=== PATIENT | male | born 1980 | race Two or more races ===

== ENCOUNTER 2018-06-13 14:39 | Inpatient (IN) | payer MEDICAID ==
[~2018-06-13] VITALS: Ht 165.1 cm; Wt 73.5 kg
--- NOTE | 2018-06-13 15:00 | NUR ---
BIB SELF, SLIPPED ON THE STAIRS AND HIT THE GLASS WINDOW, -KO, RFA LACERATION. TO ER BED 12, HOOKED TO MONITOR, GABRIELA VIDES AT BEDSIDE.
[2018-06-13] MEDS ORDERED: LIDOCAINE 2%-EPI 1:100,000 30 ML VIAL ONE ×2 (15:03→15:14)
[2018-06-13] MEDS ORDERED: HYDROMORPHONE INJ 0.5 MG/0.5 ML SYRINGE ONE (15:14)
[2018-06-13] MEDS ORDERED: ONDANSETRON HCL/PF 4 MG/2 ML VIAL ONE (15:14)
[2018-06-13] MEDS ORDERED: CEFTRIAXONE 1GM BAG (ER ONLY) 50 ML IV ONE (15:26)
[2018-06-13] MEDS ORDERED: TDAP [DIPH/PERTUSSIS/TET] 0.5 ML VIAL IM ONE ×2 (15:30→15:38)
[2018-06-13] MEDS ORDERED: CEFTRIAXONE 1 G in IV D5W 50 ML IV ONE (15:30)
[2018-06-13] MEDS ORDERED: ONDANSETRON HCL/PF 4 MG/2 ML VIAL IV ONE (15:30)
[2018-06-13] MEDS ORDERED: LIDOCAINE 2%-EPI 1:100,000 30 ML VIAL TP ONE (15:30)
[2018-06-13] MEDS ORDERED: HYDROMORPHONE INJ 0.5 MG/0.5 ML SYRINGE IV ONE (15:30)
[2018-06-13] MEDS ORDERED: CEFAZOLIN 1 GM in IV D5W 50 ML IV ONE (15:30)
--- NOTE | 2018-06-13 15:47 | NUR ---
PAGED ORTHO POULTRY HUSBANDRY TEACHER DR GANDARA. [phone]
--- NOTE | 2018-06-13 16:18 | NUR ---
DR SELMA IQBAL.
[2018-06-13] MEDS ORDERED: IV NS 0.9% 1,000 ML BAG IV ONE (17:00)
[2018-06-13 17:22] LABS: BASOPHILS # (AUTO) 0.1 /CMM (0.0-0.2); BASOPHILS % (AUTO) 0.5 % (0.0-2.0); EOSINOPHILS % (AUTO) 0.2 % (0.0-6.0); HEMATOCRIT 44 % (39-51); HEMOGLOBIN 14.9 g/dL (13.5-17.5); LYMPHOCYTES # (AUTO) 0.7 /CMM (0.8-4.8); LYMPHOCYTES % (AUTO) 4.7 % (20.0-44.0); MEAN CORPUSCULAR HGB CONC 34 g/dl (31.0-36.0); MEAN CORPUSCULAR VOLUME 93 fL (80-96); MONOCYTES # (AUTO) 0.6 /CMM (0.1-1.30); MONOCYTES % (AUTO) 3.8 % (2.0-12.0); NEUTROPHILS # (AUTO) 13.5 /CMM (1.8-8.9); NEUTROPHILS % (AUTO) 90.8 % (43.0-81.0); PLATELET COUNT (AUTO) 245 /CMM (150-450); WHITE BLOOD COUNT (AUTO) 14.8 K/uL (4.3-11.0)
[2018-06-13 17:30] LABS: CALCIUM, SERUM 8.4 mg/dL (8.5-10.1); CREATININE 0.9 mg/dL (0.6-1.3); POTASSIUM 3.7 mmol/L (3.5-5.1)
[2018-06-13 17:44] LABS: ALBUMIN 3.9 g/dL (3.4-5.0); BILIRUBIN,DIRECT 0.1 mg/dL (0.0-0.2); BILIRUBIN,TOTAL 0.3 mg/dL (0.2-1.0); TOTAL PROTEIN, SERUM 7.1 g/dL (6.4-8.2)
--- NOTE | 2018-06-13 18:01 | NUR ---
BED 109 ADM DX: COMPLICATED LACERATION
--- NOTE | 2018-06-13 18:02 | NUR ---
DINNER TRAY SERVED. INSTRUCTED PT NO PO INTAKE STARTING 06/14/2018 00:00
--- NOTE | 2018-06-13 18:40 | NUR ---
DR FRAZIER AWARE OF ADMISSION.
--- NOTE | 2018-06-13 18:46 | NUR ---
REPORT GIVEN TO GABRIELLE LEWIS OF [facility]
[2018-06-13 19:15] VITALS: BP 124/79
[2018-06-13] MEDS ORDERED: MAG HYDROX/AL HYDROX/SIMETH 30 ML UDC PO PRN (19:30)
[2018-06-13] MEDS ORDERED: ZOLPIDEM TARTRATE 5 MG TABLET PO PRN (19:30)
[2018-06-13] MEDS ORDERED: MAGNESIUM HYDROXIDE 30 ML UDC PO PRN (19:30)
[2018-06-13] MEDS ORDERED: HYDROCODONE/APAP 5/325MG 1 EACH TABLET PO PRN (19:30)
[2018-06-13] MEDS ORDERED: ONDANSETRON HCL/PF 4 MG/2 ML VIAL IVP PRN (19:30)
[2018-06-13] MEDS ORDERED: Z GUARD REMEDY 2 OZ OINT TP PRN (19:30)
[2018-06-13] MEDS ORDERED: ACETAMINOPHEN 325 MG TABLET PO PRN (19:30)
--- NOTE | 2018-06-13 20:00 | NUR ---
RN INITIAL NOTES RECEIVED PT FROM ER. A/OX3. NO SOB NOTED. IV IN L FA #20G WITH D5 1/2 @75MLS/HR. BODY ASSESSMENT DONE. R ARM LACERATION. PT RESTING COMFORTABLE IN THE ROOM. ORIENTED TO ROOM AND USE OF CALL LIGHT. ALL SAFETY PRECAUTIONS TAKEN. BED IN LOW LOCKED POSITION. WILL CLOSELY MONITOR.
[2018-06-13] MEDS: IV D5/0.45 NACL 1,000 ML IV PRN (20:51)
[2018-06-13] MEDS: HYDROMORPHONE INJ 2 MG/ML DISP.SYRIN IV PRN (20:54)
[2018-06-14 04:00] VITALS: BP 113/74
[2018-06-14 06:21] LABS: BASOPHILS # (AUTO) 0.1 /CMM (0.0-0.2); BASOPHILS % (AUTO) 0.5 % (0.0-2.0); EOSINOPHILS % (AUTO) 2.4 % (0.0-6.0); HEMATOCRIT 43 % (39-51); HEMOGLOBIN 14.9 g/dL (13.5-17.5); MEAN CORPUSCULAR HGB CONC 34 g/dl (31.0-36.0); MEAN CORPUSCULAR VOLUME 93 fL (80-96); MONOCYTES # (AUTO) 0.9 /CMM (0.1-1.30); MONOCYTES % (AUTO) 8.8 % (2.0-12.0); NEUTROPHILS # (AUTO) 6.9 /CMM (1.8-8.9); NEUTROPHILS % (AUTO) 68.3 % (43.0-81.0); PLATELET COUNT (AUTO) 230 /CMM (150-450); RED BLOOD CELL COUNT(AUTO) 4.68 MIL/uL (4.5-6.0); WHITE BLOOD COUNT (AUTO) 10.1 K/uL (4.3-11.0)
[2018-06-14 06:36] LABS: CALCIUM, SERUM 8.3 mg/dL (8.5-10.1); CREATININE 0.9 mg/dL (0.6-1.3); MAGNESIUM 2.1 mg/dL (1.8-2.4); PHOSPHORUS 3.7 mg/dL (2.5-4.9); POTASSIUM 3.8 mmol/L (3.5-5.1)
--- NOTE | 2018-06-14 07:08 | NUR ---
RN CLOSING NOTES PT IS LYING ON BED. NO CHANGE IN PTS CONDITION OVER NIGHT. IV LINE IS INTACT WITH FLUIDS INFUSING ORDERED .NO PAIN NOTED AT THIS TIME, PAIN MEDS GIVEN ORDERED. CONSULTATION DONE BY DR ODELL LOPEZ NP., PT CONFIRMED FOR SURGERY LATER TODAY. PT WILL BE KEPT NPO., PT AWARE. CONSENT FOR PROCEDURE SIGNED BY PT AND PLACED IN CHART. WILL ENDORSED TO AM SHIFT RN FOR RACIEL.
--- NOTE | 2018-06-14 07:46 | NUR ---
CEREAL POPPER OPENING NOTES RECEIVED BEDSIDE REPORT PATIENT A/O X4 [place] SPEAKING. PLEASANT MALE WELL NOURISHED. NO SIGNS OR SYMPTOMS OF RESPIRATORY DISTRESS. MILD PAIN TO (R) FOREARM AT LACERATION SITE. NOT REQUESTING PAIN MEDICATION AT THIS TIME. AMBULATORY IN ROOM. IVF D5 1/2 @ 75ML/HR. PATIENT WILL BE NPO AFTER BREAKFAST FOR SURGERY @1700. SAFETY PRECAUTIONS IN PLACE BED IN LOW POSITION BELONGINGS WITHIN REACH WELL CALL LIGHT WILL RACIEL.
[2018-06-14 08:00] VITALS: BP 109/68
[2018-06-14] MEDS: IV D5/0.45 NACL 1,000 ML IV PRN ×2 (09:51→23:01)
[2018-06-14] MEDS: HYDROMORPHONE INJ 2 MG/ML DISP.SYRIN IV PRN (11:21)
--- NOTE | 2018-06-14 13:50 | NUR ---
REGULATORY COMPLIANCE MANAGER NOTES PT ON BED ALERT AND AWAKE. RIGHT ARM ELEVATED. WAITING FOR HIS SURGERY AT 1700. BED ON LOWEST POSITION. CALL LIGHT WITHIN REACH. ALL NEEDS MET AT THIS TIME
[2018-06-14 16:00] VITALS: BP_SYST 108; BP_SYST 112; BP_DIAS 66; BP_DIAS 74
[2018-06-14] MEDS ORDERED: ANESTHESIA TRAY IN PYXIS 1 EA TRAY MC ONE (16:29)
[2018-06-14] MEDS ORDERED: BACITRACIN 50000 UNITS/VIAL ONE (16:29)
[2018-06-14] MEDS ORDERED: MIDAZOLAM HCL 2 MG/2ML VIAL ONE (16:29)
[2018-06-14] MEDS ORDERED: FENTANYL PF 100MCG/2ML AMPUL ONE (16:30)
--- NOTE | 2018-06-14 16:35 | NUR ---
TELECOMMUNICATIONS FACILITY EXAMINER NOTES PT LEFT FOR SURGERY VIA MARILEE.
[2018-06-14] MEDS ORDERED: BUPIVACAINE 0.5 % PF 150 MG/30 ML VIAL ONE (17:01)
[2018-06-14] MEDS ORDERED: HYDROGEN PEROXIDE 480 ML BOTTLE ONE (17:46)
[2018-06-14] MEDS ORDERED: HYDROCODONE/APAP 5/325MG 1 EACH TABLET PO PRN (18:30)
--- NOTE | 2018-06-14 18:34 | NUR ---
RN MS NOTES DR BAIN OK PATIENT FOR DISCHARGE. SPOKE WITH DR FRAZIER FOR DISCHARGE ORDERS. OK TO PUT IN ORDERS PER TELE PHONE ORDER.
--- NOTE | 2018-06-14 18:45 | NUR ---
RN MS NOTES PT CAME BACK FROM SURGERY VIA GURNEY. AWAKE AND ALERT. AMBULATED TO BED. VS FOLLOWS: 130/84, 62, 97.8, 18, 97% RA. EDUCATED PT ON POST-SURGERY CARE AND EMERGENCIES. PT STATES HE UNDERSTANDS. ORDERS FOR D/C IF PT FEELS STABLE ENOUGH TO GO HOME. WILL ENDORSE TO NOC SHIFT.
[2018-06-14] MEDS: SULFAMETH/TRIMETH 800/160 MG 1 UDTAB TABLET PO SCH (20:09)
[2018-06-14] MEDS: CLINDAMYCIN HCL 150 MG CAPSULE PO SCH (20:10)
[2018-06-14 21:00] VITALS: BP 117/57
--- NOTE | 2018-06-15 04:40 | NUR ---
RN NOTES RECEIVED PATIENT AWAKE IN BED. NO DISTRESS NOTED. BREATHING EVEN AND UNLABORED. ROOM AIR WELL TOLERATED. COMPLAINING OF PAIN AT THE SURGICAL SITE RIGHT FOREARM, GAVE NORCO, WITH RELIEF. PATIENT WAS SUPPOSED TO BE DISCHARGED BUT BEG OFF DUE TO PAIN AND SWELLING AT THE SURGICAL SITE. INFORMED MD DR MEDRANO AND SAID YES UNTIL MORNING WHEN CAN PICK HIM UP. NEEDS ATTENDED. KEPT CLEAN AND DRY.
[2018-06-15 05:00] VITALS: BP 104/71
[2018-06-15 06:39] LABS: BASOPHILS # (AUTO) 0.1 /CMM (0.0-0.2); BASOPHILS % (AUTO) 0.6 % (0.0-2.0); EOSINOPHILS % (AUTO) 2.3 % (0.0-6.0); HEMATOCRIT 42 % (39-51); HEMOGLOBIN 14.5 g/dL (13.5-17.5); LYMPHOCYTES # (AUTO) 1.8 /CMM (0.8-4.8); LYMPHOCYTES % (AUTO) 18.3 % (20.0-44.0); MEAN CORPUSCULAR HGB CONC 35 g/dl (31.0-36.0); MEAN CORPUSCULAR VOLUME 92 fL (80-96); MONOCYTES # (AUTO) 1.1 /CMM (0.1-1.30); MONOCYTES % (AUTO) 11.5 % (2.0-12.0); NEUTROPHILS # (AUTO) 6.7 /CMM (1.8-8.9); NEUTROPHILS % (AUTO) 67.3 % (43.0-81.0); PLATELET COUNT (AUTO) 212 /CMM (150-450); RED BLOOD CELL COUNT(AUTO) 4.52 MIL/uL (4.5-6.0)
[2018-06-15 06:51] LABS: CALCIUM, SERUM 7.8 mg/dL (8.5-10.1); CREATININE 0.9 mg/dL (0.6-1.3); PHOSPHORUS 3.3 mg/dL (2.5-4.9); POTASSIUM 3.8 mmol/L (3.5-5.1)
--- NOTE | 2018-06-15 07:24 | NUR ---
MS RN OPENING NOTE RECEIVED PT IN BED, ALERT AND ORIENTED X4. DENIES N/V, CHEST PAIN, SOB. BREATHING IS EVEN AND UNLABORED ON ROOM AIR. LEFT FA #20G IV IS INFUSING D 5 1/2 NS @ 100ML/HR WITHOUT REDNESS OR SWELLING. PT STATES PAIN IS 2/10 AT THE RIGHT FA AND TOLERABLE AT THIS TIME. PT IS FOR POSSIBLE D/C TODAY. ALL NEEDS ATTENDED TO. BED IS LOCKED AND IN LOWEST POSITION, SIDE RAILS UP X2, CALL LIGHT WITHIN REACH.
[2018-06-15 08:00] VITALS: BP 110/70
[2018-06-15] MEDS: CLINDAMYCIN HCL 150 MG CAPSULE PO SCH (09:09)
[2018-06-15] MEDS: SULFAMETH/TRIMETH 800/160 MG 1 UDTAB TABLET PO SCH (09:09)
--- NOTE | 2018-06-15 11:09 | NUR ---
MS RN NOTE PER DR. FRAZIER, PT DOES NOT NEED PRESCRIPTION FOR PAIN CONTROL AND CAN MANAGE AT HOME WITH OTC. PER GABRIELA DEAN DRESSING ORDERS UPON D.C ARE REINFORCE NEEDED.
--- NOTE | 2018-06-15 12:40 | NUR ---
RN NOTES IVHL REMOVED, NO BLEEDING NOTED. PT LEFT UNIT IN STABLE CONDITION WITH DRESSIING CLEAN AND INTACT
--- NOTE | 2018-06-15 12:45 | NUR ---
MS RN PT DISCHARGED PT DISCHARGED HOME VIA PRIVATE CAR IN MEDICALLY STABLE CONDITION. ACCOMPANIED BY BROTHER. PT IS ALERT AND ORIENTED X4, DENIES CHEST PAIN, SOB, N/V. BREATHING IS EVEN AND UNLABORED ON ROOM AIR. PT RATES PAIN AT THE RIGHT ARM 1/10 AND TOLERABLE AT THIS TIME. LEFT AC PERIPHERAL IV REMOVED WITH CATHETER TIP INTACT. R FA DRESSING IS CLEAN DRY AND INAPT, ARM SLING IN PLACE. DISCHARGE PAPERWORK AND EDUCATION PROVIDED PER PROTOCOL, WOUND DOCUMENTATION COMPLETED PER PROTOCOL. PT INFORMED TO CALL 911 OR GO THE NEAREST ER FOR ANY CHEST PAIN, SOB, UNILATERAL CALF SWELLING, INCREASED TEMPERATURE, CHANGES OR DECREASED SENSATION OF THE AFFECTED ARM, FOUL ODOR, INCREASED DRAINAGE, OR SWELLING OF THE AFFECTED ARM. PT PROVIDED WITH CONTACT INFORMATION FOR DR. MARLINE BAIN TO SCHEDULE FOLLOW UP IN 2 WEEKS, ENCOURAGE PT TO CALL OFFICE AND SCHEDULE APPOINTMENT TODAY AFTER GETTING HOME. PROVIDED PT WITH PRESCRIPTIONS FOR CLINDAMYCIN AND BACTRIM. REMINDED PT THAT MORNING DOSES HAVE BEEN ADMINISTERED ALREADY AND TO BEGIN MEDICATION TONIGHT DESCRIBED BY PHARMACY. PROVIDED DRESSING INSTRUCTIONS PER GABRIELA DEAN WHICH IS TO REINFORCE DRESSING NEEDED, AND INFORMED PT TO KEEP DRESSING CLEAN AND DRY. ALL BELONGS ACCOUNTED FOR AND BELONGINGS LIST SIGNED AND PLACED IN CHART.
[2018-06-15] MEDS ORDERED: LACTOBACILLUS RHAMNOSUS GG 1 EACH CAP.SPRINK PO SCH (17:00)
== END 2018-06-15 12:35 | disposition home or self-care (01) | DRG 952 ==
LOC: ER 14:51 → MEDSG1 18:43
PROVIDERS: ADMIT Internal Medicine; ATTEND Internal Medicine
PROC: 0KQC0ZZ Repair Right Hand Muscle, Open Approach (ICD-10-PCS; principal; 2018-06-14)
PROC: 0JCG0ZZ Extirpation of Matter from Right Lower Arm Subcutaneous Tissue and Fascia, Open Approach (ICD-10-PCS; principal; 2018-06-14)
DX: S51.821A Laceration with foreign body of right forearm, initial encounter (principal); D72.829 Elevated white blood cell count, unspecified; W10.8XXA Fall (on) (from) other stairs and steps, initial encounter; Y92.098 Other place in other non-institutional residence as the place of occurrence of the external cause; W22.09XA Striking against other stationary object, initial encounter
CPT/HCPCS: 36415; 71045-TC; 73090-TC; 80048-TC; 80076-TC; 83735-TC; 84100-TC; 85025-TC; 85730-TC; 87081-TC; 90715; A4217; A4565; A6253; A6402; A6403; G0378; J0690; J0696; J1170; J2250; J2405; J2704; J3010; J3490; J7030; J7042; J7060